=== PATIENT | female | born 1975 | race Caucasian/White ===

== ENCOUNTER 2017-05-30 13:11 | Observation (INO) | payer OTHER ==
[2017-05-30] MEDS ORDERED: SODIUM CHLORIDE 0.9% 1,000 ML IV STA (14:00)
[2017-05-30] MEDS ORDERED: ONDANSETRON 4 MG/2 ML VIAL IVP STA (14:00)
[2017-05-30] MEDS ORDERED: HYDROmorphone 1 MG/ML 1 ML SYRINGE IVP STA ×2 (14:00→16:03)
--- NOTE | 2017-05-30 14:11 | ED ---
General Adult HPI <Ravi Barbour - Last Filed: 05/30/17 18:35> - General Source: patient, RN notes reviewed Mode of arrival: ambulatory Limitations: no limitations <George Luevano - Last Filed: 05/30/17 18:39> - General Chief complaint: Abdominal Pain Stated complaint: Abd pain Time Seen by Provider: 05/30/17 13:51 - History of Present Illness Initial comments: Patient 41-year-old female who presents emergency room today with a chief complaint of right-sided abdominal pain over the last 3 days. Patient does admit that it's become more intense and more constant. She describes it as sharp type pain. Patient does admit that she went to urgent care earlier today and some blood in her urinalysis was advised coming here in the emergency room to rule out kidney stone versus appendicitis. Patient does admit to some nausea beginning today. She denies any other complaints or associated symptoms. States never had similar symptoms in the past. Patient denies any recent fever, chills, shortness of breath, chest pain, numbness or tingling, dysuria or hematuria, constipation or diarrhea, headaches or visual changes, or any other complaints. (George Luevano) - Related Data Home Medications Medication Instructions Recorded Confirmed Albuterol Sulfate [Proair Hfa] 2 puff INHALATION RT-Q6H PRN 05/30/17 05/30/17 Montelukast [Singulair] 10 mg PO DAILY 05/30/17 05/30/17 buPROPion HCL [Wellbutrin XL] 150 mg PO DAILY 05/30/17 05/30/17 Allergies Allergy/AdvReac Type Severity Reaction Status Date / Time NSAIDS (Non-Steroidal Allergy Swelling Verified 05/30/17 14:19 Anti-Inflamma prochlorperazine Allergy Unknown Verified 05/30/17 14:19 [From Compazine] shellfish derived Allergy Anaphylaxis Verified 05/30/17 14:19 Review of Systems ROS Other: All systems not noted in ROS Statement are negative. <Ravi Barbour - Last Filed: 05/30/17 18:35> ROS Other: All systems not noted in ROS Statement are negative. <George Luevano - Last Filed: 05/30/17 18:39> ROS Statement: Those systems with pertinent positive or pertinent negative responses have been documented in the HPI. Past Medical History Past Medical History: Asthma Additional Past Medical History / Comment(s): obesity History of Any Multi-Drug Resistant Organisms: None Reported Past Surgical History: Adenoidectomy, Cholecystectomy, Hysterectomy, Tonsillectomy Past Psychological History: Depression Smoking Status: Never smoker Past Alcohol Use History: None Reported Past Drug Use History: None Reported <George Luevano - Last Filed: 05/30/17 18:39> General Exam <Ravi Barbour - Last Filed: 05/30/17 18:35> Limitations: no limitations <George Luevano - Last Filed: 05/30/17 18:39> - General Exam Comments Initial Comments: General: The patient is awake and alert, in no distress, and does not appear acutely ill. Eye: Pupils are equal, round and reactive to light, extra-ocular movements are intact. No nystagmus. There is normal conjunctiva bilaterally. No signs of icterus. Ears, nose, mouth and throat: There are moist mucous membranes and no oral lesions. Neck: The neck is supple, there is no tenderness or JVD. Cardiovascular: There is a regular rate and rhythm. No murmur, rub or gallop is appreciated. Respiratory: Lungs are clear to auscultation, respirations are non-labored, breath sounds are equal. No wheezes, stridor, rales, or rhonchi. Gastrointestinal: Normal appearance abdomen. Normal bowel sounds. Abdomen soft on palpation. Patient does have tenderness right lower quadrant. No rebound tenderness. No guarding. No CVA tenderness. Musculoskeletal: Normal ROM, no tenderness. Strength 5/5. Sensation intact. Pulses equal bilaterally 2+. Neurological: A&O x 3. CN II-XII intact, There are no obvious motor or sensory deficits. Coordination appears grossly intact. Speech is normal. Skin: Skin is warm and dry and no rashes or lesions are noted. Psychiatric: Cooperative, appropriate mood & affect, normal judgment. (George Luevano) Medical Decision Making - Lab Data Result diagrams: 05/30/17 14:25 05/30/17 14:25 <Ravi Barbour - Last Filed: 05/30/17 18:35> - Lab Data Result diagrams: 05/30/17 14:25 05/30/17 14:25 <George Luevano - Last Filed: 05/30/17 18:39> - Medical Decision Making Medical decision-making. This 41-year-old female who days of mid to right upper abdominal pain. No significant change in urination. Site a decreased appetite. Nausea but no vomiting. Patient has had a history of diverticulitis 4 times in the past but states this feels somewhat different. She does have a severe ALLERGY to shellfish. Patient's white count is 9.2 urine is clean no signs of infection or blood. The patient's ultrasound was negative for free fluid unable to visualize the right ovary because of gas and the patient's girth. Patient did have CAT scan without contrast and the radiologist does state the patient has a normal appendix with no localized inflammation in that general area. There was no evidence or mention of inflamed intestine by radiology. Examination the patient finds tenderness to the lateral right midabdomen. the patient had a cholecystectomy and hysterectomy. 7 years ago she had gallbladder taken out by Dr. Rogers. I spoke with Dr. Guerin brickmason for Dr. Rogers, patient be admitted Dr. Rogers, started on antibiotics for what appears to be diverticulitis. and for further evaluation by general surgery. Dr. Barbour (Ravi Barbour) - Lab Data Lab Results 05/30/17 05/30/17 05/30/17 Range/Units 14:25 14:25 14:25 WBC 9.2 (3.8-10.6) k/uL RBC 4.43 (3.80-5.40) m/uL Hgb 13.8 (11.4-16.0) gm/dL Hct 39.3 (34.0-46.0) % MCV 88.7 (80.0-100.0) fL MCH 31.1 (25.0-35.0) pg MCHC 35.0 (31.0-37.0) g/dL RDW 12.8 (11.5-15.5) % Plt Count 409 (150-450) k/uL Neutrophils % 66 % Lymphocytes % 25 % Monocytes % 5 % Eosinophils % 2 % Basophils % 0 % Neutrophils # 6.1 (1.3-7.7) k/uL Lymphocytes # 2.3 (1.0-4.8) k/uL Monocytes # 0.5 (0-1.0) k/uL Eosinophils # 0.2 (0-0.7) k/uL Basophils # 0.0 (0-0.2) k/uL Sodium 142 (137-145) mmol/L Potassium 4.5 (3.5-5.1) mmol/L Chloride 112 H (98-107) mmol/L Carbon Dioxide 17 L (22-30) mmol/L Anion Gap 13 mmol/L BUN 19 H (7-17) mg/dL Creatinine 0.80 (0.52-1.04) mg/dL Est GFR (MDRD) Af Amer >60 (>60 ml/min/1.73 sqM) Est GFR (MDRD) Non-Af >60 (>60 ml/min/1.73 sqM) Glucose 100 H (74-99) mg/dL Plasma Lactic Acid Ghulam 0.8 (0.7-2.0) mmol/L Calcium 9.5 (8.4-10.2) mg/dL Total Bilirubin 0.3 (0.2-1.3) mg/dL AST 21 (14-36) U/L ALT 33 (9-52) U/L Alkaline Phosphatase 82 (38-126) U/L Total Protein 7.2 (6.3-8.2) g/dL Albumin 4.2 (3.5-5.0) g/dL Amylase 52 (30-110) U/L Lipase 168 (23-300) U/L Urine Color Urine Appearance (Clear) Urine pH (5.0-8.0) Ur Specific Tatum (1.001-1.035) Urine Protein (Negative) Urine Glucose (UA) (Negative) Urine Ketones (Negative) Urine Blood (Negative) Urine Nitrite (Negative) Urine Bilirubin (Negative) Urine Urobilinogen (<2.0) mg/dL Ur Leukocyte Esterase (Negative) Urine HCG, Qual (Not Detectd) 05/30/17 05/30/17 Range/Units 14:25 14:25 WBC (3.8-10.6) k/uL RBC (3.80-5.40) m/uL Hgb (11.4-16.0) gm/dL Hct (34.0-46.0) % MCV (80.0-100.0) fL MCH (25.0-35.0) pg MCHC (31.0-37.0) g/dL RDW (11.5-15.5) % Plt Count (150-450) k/uL Neutrophils % % Lymphocytes % % Monocytes % % Eosinophils % % Basophils % % Neutrophils # (1.3-7.7) k/uL Lymphocytes # (1.0-4.8) k/uL Monocytes # (0-1.0) k/uL Eosinophils # (0-0.7) k/uL Basophils # (0-0.2) k/uL Sodium (137-145) mmol/L Potassium (3.5-5.1) mmol/L Chloride (98-107) mmol/L Carbon Dioxide (22-30) mmol/L Anion Gap mmol/L BUN (7-17) mg/dL Creatinine (0.52-1.04) mg/dL Est GFR (MDRD) Af Amer (>60 ml/min/1.73 sqM) Est GFR (MDRD) Non-Af (>60 ml/min/1.73 sqM) Glucose (74-99) mg/dL Plasma Lactic Acid Ghulam (0.7-2.0) mmol/L Calcium (8.4-10.2) mg/dL Total Bilirubin (0.2-1.3) mg/dL AST (14-36) U/L ALT (9-52) U/L Alkaline Phosphatase (38-126) U/L Total Protein (6.3-8.2) g/dL Albumin (3.5-5.0) g/dL Amylase (30-110) U/L Lipase (23-300) U/L Urine Color Yellow Urine Appearance Clear (Clear) Urine pH 5.5 (5.0-8.0) Ur Specific Tatum 1.022 (1.001-1.035) Urine Protein Negative (Negative) Urine Glucose (UA) Negative (Negative) Urine Ketones Negative (Negative) Urine Blood Negative (Negative) Urine Nitrite Negative (Negative) Urine Bilirubin Negative (Negative) Urine Urobilinogen <2.0 (<2.0) mg/dL Ur Leukocyte Esterase Negative (Negative) Urine HCG, Qual Not Detected (Not Detectd) Disposition <Ravi Barbour - Last Filed: 05/30/17 18:35> Time of Disposition: 18:09 <George Luevano - Last Filed: 05/30/17 18:39> Clinical Impression: Abdominal pain Narrative: Rule out diverticulitis (George Luevano) Disposition: ADMITTED IP TO THIS [facility] Condition: Stable Referrals: Nonstaff,Physician [Primary Care Provider] - 1-2 days
[2017-05-30 14:41] LABS: Basophils % (A) 0 %; CH 30.5; CHCM 34.6; Eosinophils # (A) 0.2 k/uL (0-0.7); Eosinophils % (A) 2 %; HCT 39.3 % (34.0-46.0); HDW 2.74; HGB 13.8 gm/dL (11.4-16.0); Luc # (Auto) 0.17; Luc % (Auto) 2; Lymphocytes # (A) 2.3 k/uL (1.0-4.8); Lymphocytes % (A) 25 %; MCH 31.1 pg (25.0-35.0); MCV 88.7 fL (80.0-100.0); Mean Platelet Volume 6.7; Monocytes # (A) 0.5 k/uL (0-1.0); Monocytes % (A) 5 %; Neutrophils # (A) 6.1 k/uL (1.3-7.7); Neutrophils % (A) 66 %; RBC 4.43 m/uL (3.80-5.40); RDW 12.8 % (11.5-15.5); WBC 9.2 k/uL (3.8-10.6); WBC (Perox) 9.13
[2017-05-30 14:43] LABS: Appearance,Urine Clear (Clear); Bilirubin,Urine Negative (Negative); Glucose,Urine (UA) Negative (Negative); Ketones,Urine Negative (Negative); Leukocyte Esterase,Urine Negative (Negative); Nitrite,Urine Negative (Negative); PH, Urine 5.5 (5.0-8.0); Protein,Urine Negative (Negative); Specific Gravity,Urine 1.022 (1.001-1.035); UA Billing (MACRO vs. MICRO) CHEM; Urobilinogen,Urine <2.0 mg/dL (<2.0)
[2017-05-30 14:50] LABS: ALT 33 U/L (9-52); AST 21 U/L (14-36); Alkaline Phosphatase 82 U/L (38-126); Amylase 52 U/L (30-110); Anion Gap 13 mmol/L; Blood Urea Nitrogen 19 mg/dL (7-17); Calcium 9.5 mg/dL (8.4-10.2); Carbon Dioxide 17 mmol/L (22-30); Chloride 112 mmol/L (98-107); Glucose 100 mg/dL (74-99); Non-African American GFR(MDRD) >60 (>60 ml/min/1.73 sqM); Potassium 4.5 mmol/L (3.5-5.1); Sodium 142 mmol/L (137-145); Total Bilirubin 0.3 mg/dL (0.2-1.3); Total Protein 7.2 g/dL (6.3-8.2)
--- NOTE | 2017-05-30 15:46 | CT ---
EXAMINATION TYPE: CT abdomen pelvis wo con DATE OF EXAM: 05/30/2017 COMPARISON: NONE HISTORY: Abdominal pain CT DLP: 1257 mGycm Automated exposure control for dose reduction was used. TECHNIQUE: Helical acquisition of images was performed from the lung bases through the pelvis. FINDINGS: Lung bases are clear of consolidation. There is no pleural effusion. Liver spleen pancreas appear normal. There are clips from cholecystectomy. Bile ducts are not dilated . There is no adrenal mass. Kidneys have normal size and contour. Ureters are not dilated. There is no hydronephrosis. Appendix appears normal. There is no ascites. Bladder distends smoothly. I see no pel anisa mass. I see no intestinal wall thickening. There are no dilated loops. I see no definite renal ca lculus. The bony structures are intact. IMPRESSION: NEGATIVE CT SCAN OF THE ABDOMEN AND PELVIS. NORMAL APPENDIX. NO EVIDENCE OF RENAL STONE OR OBSTRUCTIO N. THERE ARE PHLEBOLITHS IN THE PELVIS AND A TINY URETERAL CALCULUS CANNOT BE ENTIRELY EXCLUDED.
--- NOTE | 2017-05-30 17:11 | US ---
EXAMINATION TYPE: US transvaginal DATE OF EXAM: 05/30/2017 COMPARISON: NONE CLINICAL HISTORY: pain, RLQ. TECHNIQUE: Transvaginal (TV) Date of LMP: Hysterectomy some years prior EXAM MEASUREMENTS: Uterus: Surgically absent cm Endometrial Stripe: Surgically absent cm Right Ovary: not visualized Left Ovary: cm Morbidly obese patient, technically difficult study 1. Uterus: Surgically absent 2. Endometrium: Surgically absent 3. Right Ovary: Obscured by overlying bowel gas, obesity 4. Left Ovary: wnl, venous flow detected, arterial not visualized 5. Bilateral Adnexa: wnl 6. Posterior cul-de-sac: wnl IMPRESSION: No solid or cystic pelvic mass seen. No free fluid. Left ovary measures 2.2 x 1.4 cm. No evidence of ovarian torsion. There is normal arterial waveform in the left ovarian artery on color Do ppler images.
[2017-05-30] MEDS ORDERED: LEVOFLOXACIN 750MG-D5W PMX 750 MG in DEXTROSE/WATER 1 150ML.BAG IVPB STA (18:02)
[2017-05-30] MEDS ORDERED: metroNIDAZOLE-NS PMX 500 MG in SALINE 1 100ML.BAG IVPB STA (18:02)
[2017-05-30] MEDS ORDERED: NALOXONE 0.4 MG/ML 1 ML VIAL IV PRN (18:35)
[2017-05-30] MEDS ORDERED: ONDANSETRON 4 MG/2 ML VIAL IVP PRN (18:35)
[2017-05-30] MEDS ORDERED: ACETAMINOPHEN TAB 325 MG TAB PO PRN (18:35)
[2017-05-30] MEDS: HYDROmorphone 1 MG/ML 1 ML SYRINGE IV PRN ×2 (19:29→22:41)
[2017-05-30 19:55] VITALS: RESP 16
[2017-05-30 21:01] VITALS: BMI 40.6
[2017-05-31] MEDS: ONDANSETRON 4 MG/2 ML VIAL IVP PRN ×2 (04:03→10:42)
[2017-05-31] MEDS: HYDROmorphone 1 MG/ML 1 ML SYRINGE IV PRN ×2 (04:04→07:26)
[2017-05-31] MEDS: metroNIDAZOLE-NS PMX 500 MG in SALINE 1 100ML.BAG IVPB SCH ×3 (04:13→16:46)
[2017-05-31 07:19] VITALS: PULSE 78
[2017-05-31 07:41] LABS: Basophils % (A) 0 %; CH 30.7; CHCM 33.5; Eosinophils # (A) 0.1 k/uL (0-0.7); Eosinophils % (A) 1 %; HCT 38.4 % (34.0-46.0); HDW 2.67; HGB 13.1 gm/dL (11.4-16.0); Luc # (Auto) 0.08; Luc % (Auto) 1; Lymphocytes # (A) 1.2 k/uL (1.0-4.8); Lymphocytes % (A) 15 %; MCH 31.3 pg (25.0-35.0); MCV 92.1 fL (80.0-100.0); Mean Platelet Volume 6.9; Monocytes # (A) 0.3 k/uL (0-1.0); Monocytes % (A) 4 %; Neutrophils # (A) 6.4 k/uL (1.3-7.7); Neutrophils % (A) 79 %; RBC 4.17 m/uL (3.80-5.40); WBC 8.1 k/uL (3.8-10.6); WBC (Perox) 8.23
[2017-05-31 08:03] LABS: ALT 27 U/L (9-52); AST 15 U/L (14-36); Alkaline Phosphatase 72 U/L (38-126); Anion Gap 11 mmol/L; Blood Urea Nitrogen 14 mg/dL (7-17); Calcium 8.8 mg/dL (8.4-10.2); Carbon Dioxide 19 mmol/L (22-30); Chloride 109 mmol/L (98-107); Glucose 107 mg/dL (74-99); Non-African American GFR(MDRD) >60 (>60 ml/min/1.73 sqM); Potassium 4.7 mmol/L (3.5-5.1); Sodium 139 mmol/L (137-145); Total Bilirubin 0.4 mg/dL (0.2-1.3); Total Protein 6.8 g/dL (6.3-8.2)
--- NOTE | 2017-05-31 08:53 | P.GSHP ---
History of Present Illness H&P Date: 05/31/17 Chief Complaint: Right lower quadrant abdominal pain. Patient gives a four-day history of pain in the right lower abdomen radiating to this right the suprapubic area. Some nausea. Diminished appetite. No diverticulitis in the past several times but this pain is more on the right side compared to the left side. Stools have been normal no diarrhea recently. No blood in his stool. No urinary symptoms. No vaginal discharge or bleeding. Both transvaginal ultrasound was unremarkable but the right ovary was not visualized. No kidney stones on CAT scan. No appendicitis. No abnormalities were seen on CT scan. Also was normal WBC was normal lactic acid was normal. No fever or chills. No cough. Past history positive for depression history of diverticulitis. She can't recall if and when she had a colonoscopy done. History of asthma. PD surgery includes a hysterectomy for benign disease. Laparoscopic cholecystectomy.. Systems review as above. No cardiac or respiratory problems currently. 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 Has a history of depression. ALLERGIES nonsteroidal anti-inflammatory drugs. Shellfish. 6 social history. Denies smoking or excessive alcohol intake. On examination. The patient is awake alert stable feels tired. No fever. Vitals are stable. She is in no distress at all. Hydration is good. Head and neck are normal. Heart lungs are clear. Abdomen is fairly soft with mild tenderness in the right lower quadrant and right suprapubic area but no guarding or rebound or rigidity. No masses palpable no hernias are noted. Remainder of the abdomen is fairly soft and benign. No organomegaly noted. Extremities normal. RUNSTITCHING MACHINE OPERATOR intact. Impression. Nonspecific right lower quadrant abdominal pain. No significant surgical problem. No evidence of appendicitis. Possible right ovarian pathology. Possible viral syndrome. Doubt the diverticulitis. Recommendation. We will obtain EL TEACHER consult. Possibly discharge and follow as an outpatient. Should the probably have a colonoscopy as an outpatient. Past Medical History Past Medical History: Asthma Additional Past Medical History / Comment(s): obesity, diverticulitis History of Any Multi-Drug Resistant Organisms: None Reported Past Surgical History: Adenoidectomy, Cholecystectomy, Hysterectomy, Tonsillectomy Past Anesthesia/Blood Transfusion Reactions: No Reported Reaction Past Psychological History: Depression Smoking Status: Never smoker Past Alcohol Use History: None Reported Past Drug Use History: None Reported - Past Family History Father Family Medical History: Hypertension Mother Family Medical History: CVA/TIA, Diabetes Mellitus Additional Family Medical History / Comment(s): kidney transplant Medications and Allergies Home Medications Medication Instructions Recorded Confirmed Type Albuterol Sulfate [Proair Hfa] 2 puff INHALATION RT-Q6H PRN 05/30/17 05/30/17 History Montelukast [Singulair] 10 mg PO DAILY 05/30/17 05/30/17 History buPROPion HCL [Wellbutrin XL] 150 mg PO DAILY 05/30/17 05/30/17 History Allergies Allergy/AdvReac Type Severity Reaction Status Date / Time NSAIDS (Non-Steroidal Allergy Swelling Verified 05/30/17 14:19 Anti-Inflamma prochlorperazine Allergy Unknown Verified 05/30/17 14:19 [From Compazine] shellfish derived Allergy Anaphylaxis Verified 05/30/17 14:19 Surgical - Exam Vital Signs Temp Pulse Resp BP Pulse Ox 98.7 F 95 18 139/102 99 05/30/17 13:27 05/30/17 13:27 05/30/17 13:27 05/30/17 13:27 05/30/17 13:27 Results - Labs 05/31/17 06:49 05/31/17 06:49 Abnormal Lab Results - Last 24 Hours (Table) 05/30/17 05/31/17 Range/Units 14:25 06:49 Chloride 112 H 109 H (98-107) mmol/L Carbon Dioxide 17 L 19 L (22-30) mmol/L BUN 19 H (7-17) mg/dL Glucose 100 H 107 H (74-99) mg/dL Diabetes panel 05/30/17 05/31/17 Range/Units 14:25 06:49 Sodium 142 139 (137-145) mmol/L Potassium 4.5 4.7 (3.5-5.1) mmol/L Chloride 112 H 109 H (98-107) mmol/L Carbon Dioxide 17 L 19 L (22-30) mmol/L BUN 19 H 14 (7-17) mg/dL Creatinine 0.80 0.64 (0.52-1.04) mg/dL Glucose 100 H 107 H (74-99) mg/dL Calcium 9.5 8.8 (8.4-10.2) mg/dL AST 21 15 (14-36) U/L ALT 33 27 (9-52) U/L Alkaline Phosphatase 82 72 (38-126) U/L Total Protein 7.2 6.8 (6.3-8.2) g/dL Albumin 4.2 3.8 (3.5-5.0) g/dL Calcium panel 05/30/17 05/31/17 Range/Units 14:25 06:49 Calcium 9.5 8.8 (8.4-10.2) mg/dL Albumin 4.2 3.8 (3.5-5.0) g/dL Pituitary panel 05/30/17 05/31/17 Range/Units 14:25 06:49 Sodium 142 139 (137-145) mmol/L Potassium 4.5 4.7 (3.5-5.1) mmol/L Chloride 112 H 109 H (98-107) mmol/L Carbon Dioxide 17 L 19 L (22-30) mmol/L BUN 19 H 14 (7-17) mg/dL Creatinine 0.80 0.64 (0.52-1.04) mg/dL Glucose 100 H 107 H (74-99) mg/dL Calcium 9.5 8.8 (8.4-10.2) mg/dL Adrenal panel 05/30/17 05/31/17 Range/Units 14:25 06:49 Sodium 142 139 (137-145) mmol/L Potassium 4.5 4.7 (3.5-5.1) mmol/L Chloride 112 H 109 H (98-107) mmol/L Carbon Dioxide 17 L 19 L (22-30) mmol/L BUN 19 H 14 (7-17) mg/dL Creatinine 0.80 0.64 (0.52-1.04) mg/dL Glucose 100 H 107 H (74-99) mg/dL Calcium 9.5 8.8 (8.4-10.2) mg/dL Total Bilirubin 0.3 0.4 (0.2-1.3) mg/dL AST 21 15 (14-36) U/L ALT 33 27 (9-52) U/L Alkaline Phosphatase 82 72 (38-126) U/L Total Protein 7.2 6.8 (6.3-8.2) g/dL Albumin 4.2 3.8 (3.5-5.0) g/dL
[2017-05-31 15:26] VITALS: BP 105/57; TEMP 97.8
--- NOTE | 2017-05-31 17:33 | P.OBCN ---
History of Present Illness Consult date: 05/31/17 Requesting physician: Parevz Rogers Reason for consult: pelvic pain Chief complaint: Abdominal and pelvic pain, nausea and vomiting History of present illness: The patient is a 41-year-old 2 para 1011 admitted through the emergency room after approximately 3 days of discomfort which was progressive in nature. She presented to the emergency room where she underwent CT of the abdomen and pelvis as well as pelvic ultrasound. There were no significant findings aside from the possibility of a small right renal calculus. She did have nausea and vomiting as well and was admitted to the hospital for observation. She was not thought to have a surgical abdomen by the surgical service and consultation was sought with gynecology to rule out ovarian etiology. She has undergone hysterectomy in 2007 for fibroids and bleeding concerns. Her ovaries were left in situ. She reports that over the course of the day today, her pain has significantly improved going from approximately 8 on a 1-10 scale to a 3 on a 1- 10 scale. The pain also traveled from her right flank to her right side and then into the right low pelvis and then significantly improved. Obstetrical history: 2 para 1001 with 1 term vaginal delivery without complications per she had one early miscarriage not requiring D&C. Method of contraception is hysterectomy. Gynecologic history: Unremarkable with no history of any infections to include STDs. Review of Systems Of systems is confined to history of present illness. Past Medical History Past Medical History: Asthma Additional Past Medical History / Comment(s): obesity, diverticulitis History of Any Multi-Drug Resistant Organisms: None Reported Past Surgical History: Adenoidectomy, Cholecystectomy, Hysterectomy, Tonsillectomy Past Anesthesia/Blood Transfusion Reactions: No Reported Reaction Past Psychological History: Depression Smoking Status: Never smoker Past Alcohol Use History: None Reported Past Drug Use History: None Reported - Past Family History Father Family Medical History: Hypertension Mother Family Medical History: CVA/TIA, Diabetes Mellitus Additional Family Medical History / Comment(s): kidney transplant Medications and Allergies Home Medications Medication Instructions Recorded Confirmed Type Albuterol Sulfate [Proair Hfa] 2 puff INHALATION RT-Q6H PRN 05/30/17 05/30/17 History Montelukast [Singulair] 10 mg PO DAILY 05/30/17 05/30/17 History buPROPion HCL [Wellbutrin XL] 150 mg PO DAILY 05/30/17 05/30/17 History Allergies Allergy/AdvReac Type Severity Reaction Status Date / Time NSAIDS (Non-Steroidal Allergy Swelling Verified 05/30/17 14:19 Anti-Inflamma prochlorperazine Allergy Unknown Verified 05/30/17 14:19 [From Compazine] shellfish derived Allergy Anaphylaxis Verified 05/30/17 14:19 Exam - Vital Signs Vital signs: Vital Signs Temp Pulse Pulse Resp BP BP Pulse Ox 05/31/17 16:00 78 16 05/31/17 15:22 97.8 F 78 16 105/57 96 05/31/17 12:00 78 16 05/31/17 07:56 78 16 05/31/17 07:18 97.5 F L 78 16 122/84 96 05/31/17 04:00 16 05/31/17 00:00 97.7 F 80 16 137/85 96 05/30/17 22:45 16 05/30/17 20:00 16 05/30/17 19:53 97.7 F 78 16 115/67 96 05/30/17 18:58 97.2 F L 76 18 135/88 98 Intake and Output 05/31/17 05/31/17 05/31/17 06:59 14:59 22:59 Output Total 150 Balance -150 Output: Emesis 150 Other: Voiding Method Toilet Toilet Toilet # Voids 2 2 General, this is a morbidly obese white female in no acute distress. Her heart has a regular rhythm and rate without murmur. Her lungs are clear to auscultation bilaterally in all currie. Her abdomen is obese, nondistended, has normal active bowel sounds, soft, nontender, and without any palpable masses , hepatomegaly, or hernias. Her extremities without any cyanosis, clubbing, or edema and are nontender to palpation bilaterally. Bimanual pelvic examination demonstrates the uterus to be surgically absent. The adnexa are nonpalpable and nontender without any apparent masses bilaterally. Rectovaginal examination deferred Results Result Diagrams: 05/31/17 06:49 05/31/17 06:49 Abnormal Lab Results - Last 24 Hours (Table) 05/31/17 Range/Units 06:49 Chloride 109 H (98-107) mmol/L Carbon Dioxide 19 L (22-30) mmol/L Glucose 107 H (74-99) mg/dL Assessment and Plan (1) Abdominal pain Status: Acute Plan: A suspected pain is the result of a possible kidney stone which has now passed hours in the process of passing into the bladder. She reports the pain has traveled throughout the course of the day from the right flank to the right anterior pelvis and then suddenly became significantly better. She rates it at a 3 now as opposed to an 8R earlier this morning and last night. She has no further nausea and vomiting initially feels hungry. As result, I would encourage discharge and have her follow-up for any gynecologic problems as an outpatient. The case was discussed with Dr. Rogers who agrees and we'll discharge the patient.
[2017-05-31] MEDS ORDERED: LEVOFLOXACIN 750MG-D5W PMX 750 MG in DEXTROSE/WATER 1 150ML.BAG IVPB SCH (20:00)
== END 2017-05-31 18:24 | disposition home or self-care (01) ==
LOC: EC 13:11 → 3OBS 18:38
PROVIDERS: ADMIT Surgery; ATTEND Surgery
DX: R10.2 Pelvic and perineal pain (principal); R11.2 Nausea with vomiting, unspecified; J45.909 Unspecified asthma, uncomplicated; F32.9 Major depressive disorder, single episode, unspecified; E66.01 Morbid (severe) obesity due to excess calories; Z79.899 Other long term (current) drug therapy; Z88.8 Allergy status to other drugs, medicaments and biological substances; Z88.6 Allergy status to analgesic agent; Z91.013 Allergy to seafood; Z79.51 Long term (current) use of inhaled steroids; Z68.41 Body mass index [BMI] 40.0-44.9, adult; Z87.19 Personal history of other diseases of the digestive system; Z82.49 Family history of ischemic heart disease and other diseases of the circulatory system
CPT/HCPCS: 36415; 74176; 76830; 80053; 81003; 81025; 82150; 83605; 83690; 85025; 87040; 93976; 96361; 96365; 96366; 96367; 96375; 96376; 99285